=== PATIENT | male | born 1960 | race Two or more races ===

== ENCOUNTER 2019-01-17 14:39 | Day surgery (SDC) | payer OTHER ==
[2019-01-14 16:24] VITALS: BMI 33.7
[~2019-01-17 14:39] MED LIST: ACETAMINOPHEN 325 MG TABLET (FP) PO PRN; ONDANSETRON 4 MG/2 ML VIAL IVPUSH PRN; oxyCODONE HCL 5 MG TABLET PO PRN
[2019-01-17] MEDS ORDERED: MIDAZOLAM HCL 2 MG/2 ML SINGLE DOSE VIAL ONE (15:59)
[2019-01-17] MEDS ORDERED: fentaNYL CITRATE 250 MCG/5 ML VIAL ONE (16:11)
--- NOTE | 2019-01-17 16:18 | OP ---
Operative Note - Note: Operative Date: 01/17/19 Pre-Operative Diagnosis: Right kidney stone Operation: Right ESWL Findings: 6 mm Right renal lower pole stone Post-Operative Diagnosis: Same as Pre-op Anesthesia: Fractional Estimated Blood Loss (mls): 0 Drains, Volume Out (mls): 0 Operative Report Dictated: Yes
[2019-01-17 17:33] VITALS: BP 119/68; PULSE 60; TEMP 97.9
--- NOTE | 2019-01-17 20:55 | OP ---
DATE OF OPERATION: 01/17/2019 PREOPERATIVE DIAGNOSIS: Right renal stone. POSTOPERATIVE DIAGNOSIS: Right renal stone. PROCEDURE: Right extracorporeal shock-wave lithotripsy. ATTENDING: Sabra Whiting MD ANESTHESIA: Fractional. DESCRIPTION OF PROCEDURE: Patient was brought in the operating room. Placed in supine position on the operating room table. Ultrasonography and fluoroscopy were performed. A 6-mm right lower pole stone was identified. Anesthesia and preoperative antibiotics were administered; 2500 impulses at 17 joules of power were administered to the stone with excellent fragmentation of the stone under real time ultrasonography and fluoroscopy. The patient tolerated the procedure very well. SABRA WHITING M.D. [id number]
== END 2019-01-17 17:40 | disposition home or self-care (01) ==
LOC: JASU-SURG 14:39
PROVIDERS: ATTEND Urology
PROC: 0TF3XZZ Fragmentation in Right Kidney Pelvis, External Approach (ICD-10-PCS; principal; 2019-01-17 16:15)
DX: N20.0 Calculus of kidney (principal)